=== PATIENT | female | born 1945 | race Caucasian/White ===

== ENCOUNTER → 2016-08-03 | Outpatient (CLI) | payer OTHER ==
[~2016-08-03] MED LIST: ALL180 PO; AMLO-110 PO; AMOX500C3 PO; AMOX875T PO; AZITTAB PO; BIOT50006 PO; CHOL1000 PO; CYAN500T PO; CZR50 PO; FERR1TAB61 PO; FEXO1TAB49 PO; GFNSR600 PO; GLC500 PO; GLIP10TA3 PO; INSDGIPEN SC; LEVO75TA PO; LOSA100T65 PO; MCR25 PO; MELA1TAB5 PO; METF-384 PO; POLY335019 PO; PRLSR20 PO; SIMV10TA2 PO
[2016-08-03 10:22] LABS: BASO % 0.3 %; BASO ABS # 0.02 K/uL (0-0.2); COMPLETE YES; EOS % 5.4 %; HEMATOCRIT 37.4 % (37-47); IG% 0.2 %; LYMPH % 36.8 %; LYMPH ABS # 2.31 K/uL (1.2-3.4); MEAN CELL VOLUME 93.5 fL (80-100); MEAN CORPUSCULAR HEMOGLOBIN 30.8 pg (25-34); MEAN CORPUSCULAR HGB CONC 32.9 g/dl (32-36); MEAN PLATELET VOLUME 10.6 fL (7.4-10.4); MONO % 10.2 %; NEUT % 47.1 %; PLATELET COUNT 303 K/uL (130-400); WHITE BLOOD COUNT 6.28 K/uL (4.8-10.8)
[2016-08-03 10:34] LABS: ALT/SGPT 22 U/L (12-78); BLOOD UREA NITROGEN 23 mg/dl (7-18); BUN/CREATININE RATIO 17.5 (10-20); CALCIUM 9.4 mg/dl (8.5-10.1); CARBON DIOXIDE 20 mmol/L (21-32); CHLORIDE 107 mmol/L (98-107); CHOLESTEROL 170 mg/dl (0-200); GLUCOSE 91 mg/dl (70-99); POTASSIUM 4.3 mmol/L (3.5-5.1); SODIUM 138 mmol/L (136-145)
[2016-08-03 10:44] LABS: ALKALINE PHOSPHATASE 66 U/L (45-117); AST/SGOT 12 U/L (15-37); CHOLESTEROL/HDL RATIO 4.4; HDL CHOLESTEROL 39 mg/dl; LDL CHOLESTEROL CALCULATED 86 mg/dl; TRIGLYCERIDES 227 mg/dl (0-150); VERY LOW DENSITY LIPOPROT CALC 45 mg/dl
[2016-08-03 11:33] LABS: ESTIMATED AVERAGE GLUCOSE 163 mg/dl; HA1C FLAG Normal (Normal)
--- NOTE | 2016-08-07 12:26 | CODING QUERY MEDICAL NECESSITY ---
SUPPORTING DIAGNOSIS NEEDED A supporting diagnosis is required for the test/procedure performed on this patient in order for us to be reimbursed by the patient's insurance. Please provide a supporting diagnosis for the following test/procedure listed below next to the test name along with your signature. *If there is no additional diagnosis for this patient that would support the following test/procedure please document that below next to the test/procedure. Test(s)/Procedure(s) that require a supporting diagnosis: * VITAMIN B-12 LEVEL DIAGNOSIS: * DOS: 08/03/16 Provider Signature: Date: Thank you Keely Ocampo Health Information Management Once completed, please kindly fax back to [phone] For questions please call [phone]
== END | disposition home or self-care (01) ==
LOC: C.LAB 08:05
PROVIDERS: ATTEND Internal Medicine Geriatric Medicine
DX: E78.5 Hyperlipidemia, unspecified (principal); I12.9 Hypertensive chronic kidney disease with stage 1 through stage 4 chronic kidney disease, or unspecified chronic kidney disease; M19.90 Unspecified osteoarthritis, unspecified site; E11.9 Type 2 diabetes mellitus without complications; E03.9 Hypothyroidism, unspecified; N18.3 Chronic kidney disease, stage 3 (moderate); E11.21 Type 2 diabetes mellitus with diabetic nephropathy; E53.8 Deficiency of other specified B group vitamins

== ENCOUNTER → 2016-10-30 | Outpatient (CLI) | payer OTHER ==
--- NOTE | 2016-10-30 16:38 | MAMMOGRAPHY REPORT ---
BILATERAL DIGITAL SCREENING MAMMOGRAM WITH CAD: 10/30/2016 CLINICAL HISTORY: Routine screening. Patient has no complaints. TECHNIQUE: Bilateral CC and MLO views were obtained. Current study was also evaluated with a Comput er Aided Detection (CAD) system. COMPARISON: Comparison is made to exams dated: 10/27/2015 mammogram, 10/01/2014 mammogram, 08/28/2013 m ammogram, 05/26/2012 mammogram, 05/08/2011 mammogram, and 04/28/2010 mammogram - [facility]. BREAST COMPOSITION: There are scattered areas of fibroglandular density in both breasts. FINDINGS: There are stable asymmetries in the right breast. Stable microcalcifications in the left breast. No new suspicious mass, architectural distortion or cluster of microcalcifications is seen. IMPRESSION: ACR BI-RADS CATEGORY 1: NEGATIVE There is no mammographic evidence of malignancy. A 1 year screening mammogram is recommended. The p atient will receive written notification of the results. Approximately 10% of breast cancers are not detected with mammography. A negative mammographic repor t should not delay biopsy if a clinically suggestive mass is present. Serina Combs M.D. ay/:10/30/2016 14:51:54 Chopper Feeder: Amina WALKER(Jeanne)(M), [facility] letter sent: Normal 1/2 BI-RADS Code: ACR BI-RADS Category 1: Negative
== END | disposition home or self-care (01) ==
LOC: C.MAMM 09:54
PROVIDERS: ATTEND Internal Medicine Geriatric Medicine
DX: Z12.31 Encounter for screening mammogram for malignant neoplasm of breast (principal)

== ENCOUNTER 2016-12-13 13:38 | Emergency (ER) | payer OTHER ==
[~2016-12-13] VITALS: Ht 147.3 cm; Wt 72.6 kg
[~2016-12-13 13:38] MED LIST changes: -AMLO-110 PO; -AMOX500C3 PO; -AMOX875T PO; -BIOT50006 PO; -CHOL1000 PO; -CYAN500T PO; -FERR1TAB61 PO; -FEXO1TAB49 PO; -GLIP10TA3 PO; -INSDGIPEN SC; -LEVO75TA PO; -LOSA100T65 PO; -MELA1TAB5 PO; -METF-384 PO; -POLY335019 PO
[2016-12-13 13:40] VITALS: TEMP 36.7; Ht 147.3 cm; Wt 72.6 kg
[2016-12-13] MEDS ORDERED: AMLO-110 PO (14:58)
[2016-12-13] MEDS ORDERED: LEVO75TA PO (14:58)
[2016-12-13] MEDS ORDERED: FERR1TAB61 PO (14:58)
[2016-12-13] MEDS ORDERED: METF-384 PO (14:58)
[2016-12-13] MEDS ORDERED: LOSA100T65 PO (14:58)
[2016-12-13] MEDS ORDERED: BIOT50006 PO (14:58)
[2016-12-13] MEDS ORDERED: CHOL1000 PO (14:58)
[2016-12-13] MEDS ORDERED: GLIP10TA3 PO (14:58)
[2016-12-13] MEDS ORDERED: FEXO1TAB49 PO (14:58)
[2016-12-13] MEDS ORDERED: CYAN500T PO (14:58)
[2016-12-13] MEDS ORDERED: MELA1TAB5 PO (14:58)
[2016-12-13] MEDS ORDERED: AMOX500C3 PO (14:58)
[2016-12-13] MEDS ORDERED: POLY335019 PO (14:58)
[2016-12-13] MEDS ORDERED: INSDGIPEN SC (14:58)
[2016-12-13] MEDS ORDERED: MoRPHine SULFATE 4 MG/ML 1 ML CARP IV STA (15:08)
[2016-12-13] MEDS ORDERED: ONDANSETRON INJ 2 MG/ML 2 ML VIAL IV STA (15:08)
[2016-12-13] MEDS ORDERED: SODIUM CHLORIDE 0.9% 1000ML 1,000 ML IV ONE (15:08)
[2016-12-13] MEDS ORDERED: SODIUM CHLORIDE 0.9% 1000ML 1,000 ML IV STA (15:08)
[2016-12-13] MEDS ORDERED: AMPICILLIN/SULBACTAM SOD INJ 3,000 MG in SODIUM CHLORIDE 0.9% 100ML 100 ML IV ONE (15:15)
--- NOTE | 2016-12-13 15:16 | EMERGENCY ROOM VISIT NOTE ---
History Report prepared by Aneudy: Marlo Ryder Under the Supervision of: Dr. Eric Fregoso M.D. First contact with patient: 14:59 Chief Complaint: DENTAL PAIN Stated Complaint: DENTAL PROCEDURE PAIN, SWELLING History of Present Illness The patient is a 71 year old female who presents to the Emergency Room with complaints of persistent left-sided dental pain that started 2 days ago. She says that she saw Dr. Weathers ([facility] [place] yesterday and was given Amoxicillin. She has taken 3 tablets so far. The patient adds that she started having swelling and redness in her neck last night. She does not have dental insurance, but she says that she saw a dentist in [place] ([facility]) this morning, and had 2 teeth pulled. The patient notes that the dentist says that there is another tooth that may be causing a problem, but it does not have a cavity. She states that both teeth that were pulled were on her left lower jaw. She was given a prescription of hydrocodone, but the patient's says that hydrocodone makes the patient's nauseous, so she did not take the hydrocodone. The dentist recommended that the patient talk to Dr. Weathers, and Dr. Stewart told the patient to come here to prevent the infection in her neck from spreading down her body. The patient adds that she has been nauseous, and has had a bit of trouble swallowing. She denies any chest pain or shortness of breath. The patient is diabetic, and takes medication for that. She also has a history of hypertension. Source of History: patient, spouse/significant other Onset: 2 days ago Position: teeth (left-side) Timing: other (persistent) Associated Symptoms: + nausea, No chest pain, No SOB Note: Associated symptoms: Swelling and redness in neck. Trouble swallowing. Review of Systems See HPI for pertinent positives & negatives. A total of 10 systems reviewed and were otherwise negative. Past Medical & Surgical Medical Problems: (1) Asthma W/O Status Asthm (2) Hyperlipidemia Nec/Nos (3) Hypertension Nos (4) Urin Tract Infection Nos Old medical records were reviewed. Nurse's notes were reviewed and I agree with. Family History Diabetes mellitus Hypertension Social History Smoking Status: Never Smoker Smokeless Tobacco Use: No Alcohol Use: none Marital Status: Housing Status: lives with family Occupation Status: retired Current/Historical Medications Scheduled Amlodipine (Norvasc), 2.5 MG PO DAILY Amoxicillin (Amoxil), 500 MG PO TID Amoxicillin & Pot Clavulanate (Augmentin 875-125 mg), 875 MG PO BID Biotin (Biotin), 1 TAB PO DAILY Cholecalciferol (Vitamin D3), 1 TAB PO DAILY Cyanocobalamin (Vitamin B-12), 500 MCG PO DAILY Ferrous Sulfate (Iron), 65 MG PO DAILY Fexofenadine Hcl (Shanell Allergy), 1 TAB PO DAILY Glipizide (Glucotrol), 10 MG PO BID Insulin Glargine (Lantus Solostar), 10 UNITS SC QAM Levothyroxine Sodium (Synthroid), 75 MCG PO DAILY Losartan Potassium (Cozaar), 100 MG PO DAILY Melatonin (Kp Melatonin), 1 TAB PO HS Metformin Hcl (Glucophage), 1,000 MG PO BID Omeprazole (Prilosec), 20 MG PO DAILY Polyethylene Glycol 3350 (Miralax), 17 GM PO BID Simvastatin (Zocor), 10 MG PO QPM Allergies Coded Allergies: Iodine (Verified Allergy, Unknown, IVP DYE=HIVES, 12/13/16) Sodium Chloride (Verified Allergy, Unknown, 12/13/16) Physical Exam Vital Signs Date Time Temp Pulse Resp B/P (MAP) Pulse Ox O2 Delivery O2 Flow Rate FiO2 12/13/16 17:24 100 18 134/93 93 12/13/16 15:32 104 18 153/95 94 Room Air 12/13/16 13:40 36.7 115 17 113/70 97 Room Air Physical Exam General: Well developed well nourished middle aged female who has 2 teeth in left lower jaw extracted, breathing comfortably on room air. Normal speech HEENT: Normal cephalic atraumatic. Floor of mouth is soft, no Alli's angina. Pupils are equal round and reactive to light. Extraocular movements are intact. Oropharynx is pink with moist mucous membranes. No swelling of the mouth lips or tongue. Neck: Mild swelling and redness under chin. Supple with a midline trachea. No meningeal signs or stiffness, no JVD or bruits. No Stridor. Chest: Clear to auscultation bilaterally. No wheezes or rhonchi. No increased work of breathing. Heart: regular rate and rhythm. Abdomen: Soft nontender, nondistended without rebound guarding or rigidity. Extremities: No cyanosis clubbing or edema. No calf tenderness or assymetry Spine/Back. Non tender to palpation. No CVA tenderness Skin: Good turgor without rashes. Neurologic exam: Cranial nerves two through 12 are intact. Motor and sensation are intact and symmetrical throughout. Medical Decision & Procedures ER Provider Diagnostic Interpretation: CT results as stated below per my review and radiologist interpretation: CT OF THE NECK WITHOUT CONTRAST CLINICAL HISTORY: Left lower jaw pain and swelling. Recent dental procedure. COMPARISON STUDY: Cervical spine CT June 22, 2010. TECHNIQUE: Axial images of the neck were obtained without IV contrast. FINDINGS: Visualized portions of the intracranial contents are unremarkable on this unenhanced exam. There is mild polypoid mucosal thickening of the ethmoid sinuses. Mastoid air cells are clear. There are several absent left mandibular teeth. There is moderate adjacent facial infiltration which extends into the upper to mid neck. There is associated thickening of the platysma muscle. There is no fluid collection to suggest an abscess on this unenhanced exam. Lung apices are clear. Airway is patent. No suspicious skeletal lesions are present. Epiglottis is normal. Unenhanced images of the parotid and submandibular glands are normal. IMPRESSION: Several absent left mandibular teeth suggestive of recent extraction. Adjacent infiltration and soft tissue thickening may reflect phlegmon with associated cellulitis of the face and neck. However, no abscess identified on this unenhanced exam. Electronically signed by: Leon Hunter M.D. 12/13/2016 3:59 PM Dictated Date/Time: 12/13/2016 3:52 PM Laboratory Results 12/13/16 15:27 Red Blood Count 4.45, Mean Corpuscular Volume 91.2, Mean Corpuscular Hemoglobin 29.7, Mean Corpuscular Hemoglobin Concent 32.5, Mean Platelet Volume 9.9, Neutrophils (%) (Auto) 77.3, Lymphocytes (%) (Auto) 12.0, Monocytes (%) (Auto) 10.0, Eosinophils (%) (Auto) 0.3, Basophils (%) (Auto) 0.1, Neutrophils # (Auto ) 11.72, Lymphocytes # (Auto) 1.83, Monocytes # (Auto) 1.52, Eosinophils # (Auto ) 0.05, Basophils # (Auto) 0.02 12/13/16 15:27 Test 12/13/16 15:27 White Blood Count 15.19 K/uL (4.8-10.8) Red Blood Count 4.45 M/uL (4.2-5.4) Hemoglobin 13.2 g/dL (12.0-16.0) Hematocrit 40.6 % (37-47) Mean Corpuscular Volume 91.2 fL (80-100) Mean Corpuscular Hemoglobin 29.7 pg (25-34) Mean Corpuscular Hemoglobin Concent 32.5 g/dl (32-36) Platelet Count 316 K/uL (130-400) Mean Platelet Volume 9.9 fL (7.4-10.4) Neutrophils (%) (Auto) 77.3 % Lymphocytes (%) (Auto) 12.0 % Monocytes (%) (Auto) 10.0 % Eosinophils (%) (Auto) 0.3 % Basophils (%) (Auto) 0.1 % Neutrophils # (Auto) 11.72 K/uL (1.4-6.5) Lymphocytes # (Auto) 1.83 K/uL (1.2-3.4) Monocytes # (Auto) 1.52 K/uL (0.11-0.59) Eosinophils # (Auto) 0.05 K/uL (0-0.5) Basophils # (Auto) 0.02 K/uL (0-0.2) RDW Standard Deviation 43.4 fL (36.4-46.3) RDW Coefficient of Variation 13.1 % (11.5-14.5) Immature Granulocyte % (Auto) 0.3 % Immature Granulocyte # (Auto) 0.05 K/uL (0.00-0.02) Anion Gap 10.0 mmol/L (3-11) Est Creatinine Clear Calc Drug Dose 27.7 ml/min Estimated GFR () 37.4 Estimated GFR (Non- 32.3 BUN/Creatinine Ratio 11.4 (10-20) Calcium Level 10.1 mg/dl (8.5-10.1) Laboratory studies as stated above per my review. Medications Administered Medications (Trade) Dose Ordered Sig/Celestina Route Start Time Stop Time Status Last Admin Dose Admin Sodium Chloride 1,000 ml @ 999 mls/hr Q1H1M STAT IV 12/13/16 15:08 12/13/16 16:08 DC 12/13/16 15:08 999 MLS/HR Sodium Chloride 1,000 ml @ 150 mls/hr Q6H40M ONCE IV 12/13/16 15:08 12/13/16 17:39 DC 12/13/16 15:08 150 MLS/HR Morphine Sulfate (MoRPHine SULFATE INJ) 4 mg NOW STAT IV 12/13/16 15:08 12/13/16 15:10 DC 12/13/16 15:34 4 MG Ondansetron HCl (Zofran Inj) 4 mg NOW STAT IV 12/13/16 15:08 12/13/16 15:10 DC 12/13/16 15:33 4 MG Ampicillin Sodium/ Sulbactam Sodium 3000 mg/Sodium Chloride 108 ml @ 200 mls/hr ONE ONCE IV 12/13/16 15:15 12/13/16 15:47 DC 12/13/16 15:34 200 MLS/HR Amoxicillin/ Clavulanate Potassium (Augmentin 875MG Home Pack) 1 homepack UD ONCE PO 12/13/16 17:15 12/13/16 17:16 DC 12/13/16 17:15 1 HOMEPACK ED Course 1500: Past medical records reviewed. The patient was evaluated in room B3B, and a complete history and physical examination were performed. 1508: Ordered Zofran Inj 4 mg IV, Morphine Sulfate Inj 4 mg IV, NSS 1000 ml @ 150 mls/hr IV, NSS 1000 ml @ 999 mls/hr IV. 1515: Ordered Ampicillin Sodium/Sulbactam Sodium 3000 mg/Sodium Chloride 108 ml @ 200 mls/hr IV. 1610: I reevaluated the patient. She is getting antibiotics and is stable. 1707: Upon reevaluation, the patient is resting comfortably. I discussed the results and treatment plan with her. She verbalized agreement of the treatment plan. The patient was discharged home. Medical Decision Differentials include, but are not limited to; dental abscess, dental caries, abscess, airway obstruction. Medication Reconciliation: I attest that I have personally reviewed the patient' s current medication list. Blood pressure Screening: Patient was found to have normal blood pressure on screening and does not require follow-up. This patient comes in as described above. She was placed in room A3. She was seen by her dentist and had 2 teeth pulled today. She is here for treatment and evaluation of some facial swelling and she has been on 3 dosages of Amoxicillin. She may have some mild swelling redness of her chin . The floor of mouth is soft on exam and do not reveal any symptoms to suggest Alli's angina. No evidence of airway compromise or stridor. I did order a CT soft tissue is contrast because she tells me she had allergic reaction to dye. IV access was established and she was hydrated with IV normal saline. She was additionally given morphine 4 mg and Zofran 4 mg IV for pain and nausea management. Blood work was obtained and she was reassessed. She feels better after the pain medication. CAT scan shows no abscess but there is some inflammation likely cellulitis. She feels good and would like to go home. I encouraged close follow-up tomorrow and I told her that she needs to get rechecked by either regular doctor her dentist. She will use Augmentin 875 mg twice a day instead of the amoxicillin this will have better broad-spectrum coverage. She can use her pain medication if needed and she should return if: increasing pain, shortness of breath, fever or chills worsening symptoms any new problems or concerns and again I stressed that somebody needs look at her tomorrow for recheck. Impression Primary Impression: Tooth ache Additional Impressions: Facial cellulitis Dental caries Scribe Attestation The scribe's documentation has been prepared under my direction and personally reviewed by me in its entirety. I confirm that the note above accurately reflects all work, treatment, procedures, and medical decision making performed by me. Departure Information Dispostion Home / Self-Care Prescriptions Amoxicillin & Pot Clavulanate (Augmentin 875-125 mg) 1 Tab Tab 875 MG PO BID for 10 Days, #20 TAB Prov: Eric Fregoso M.D. 12/13/16 Referrals Remi Weathers M.D. (PCP) Forms HOME CARE DOCUMENTATION FORM, IMPORTANT VISIT INFORMATION Patient Instructions My [facility] Additional Instructions Rest. Drink plenty of fluids. Use Augmentin 875 mg twice a day for 10 days. This replaces the amoxicillin Follow-up with your doctor or dentist tomorrow for recheck. Return to the ER in the meantime if: fever, increasing redness or warmth or swelling, Significant pain, difficulty breathing or swallowing, any new problems or concerns Problem Qualifiers
[2016-12-13 15:49] LABS: BASO % 0.1 %; BASO ABS # 0.02 K/uL (0-0.2); COMPLETE YES; EOS % 0.3 %; HEMATOCRIT 40.6 % (37-47); IG% 0.3 %; LYMPH ABS # 1.83 K/uL (1.2-3.4); MEAN CELL VOLUME 91.2 fL (80-100); MEAN CORPUSCULAR HEMOGLOBIN 29.7 pg (25-34); MEAN CORPUSCULAR HGB CONC 32.5 g/dl (32-36); MEAN PLATELET VOLUME 9.9 fL (7.4-10.4); NEUT % 77.3 %; PLATELET COUNT 316 K/uL (130-400); RED BLOOD COUNT 4.45 M/uL (4.2-5.4); WHITE BLOOD COUNT 15.19 K/uL (4.8-10.8)
--- NOTE | 2016-12-13 16:00 | DIAGNOSTIC IMAGING REPORT ---
ADDENDUM Addendum: This study was reviewed with Dr. Fregoso. Note is made of a periapical lucency of a left mandibular molar. This molar is adjacent to a recently extracted tooth. Multiple dental amalgams are present. Electronically signed by: Leon Hunter M.D. 12/13/2016 4:32 PM Dictated Date/Time: 12/13/2016 4:[address] OF THE NECK WITHOUT CONTRAST CLINICAL HISTORY: Left lower jaw pain and swelling. Recent dental procedure. COMPARISON STUDY: Cervical spine CT June 22, 2010. TECHNIQUE: Axial images of the neck were obtained without IV contrast. FINDINGS: Visualized portions of the intracranial contents are unremarkable on this unenhanced exam. There is mild polypoid mucosal thickening of the ethmoid sinuses. Mastoid air cells are clear. There are several absent left mandibular teeth. There is moderate adjacent facial infiltration which extends into the upper to mid neck. There is associated thickening of the platysma muscle. There is no fluid collection to suggest an abscess on this unenhanced exam. Lung apices are clear. Airway is patent. No suspicious skeletal lesions are present. Epiglottis is normal. Unenhanced images of the parotid and submandibular glands are normal. IMPRESSION: Several absent left mandibular teeth suggestive of recent extraction. Adjacent infiltration and soft tissue thickening may reflect phlegmon with associated cellulitis of the face and neck. However, no abscess identified on this unenhanced exam. Electronically signed by: Leon Hunter M.D. 12/13/2016 3:59 PM Dictated Date/Time: 12/13/2016 3:52 PM
[2016-12-13 16:09] LABS: BUN/CREATININE RATIO 11.4 (10-20); CALCIUM 10.1 mg/dl (8.5-10.1); CREATININE 1.6 mg/dl (0.60-1.20); POTASSIUM 4.1 mmol/L (3.5-5.1)
[2016-12-13] MEDS ORDERED: AMOX875T PO (17:06)
[2016-12-13] MEDS ORDERED: AMOXICIL/CLAVU 875MG HOME PACK PO ONE (17:15)
[2016-12-13 17:24] VITALS: BP 134/93; PULSE 100; O2SAT 93
== END 2016-12-13 17:26 | disposition home or self-care (01) ==
LOC: C.EDB 13:39
DX: K02.9 Dental caries, unspecified (principal); L03.211 Cellulitis of face; E78.5 Hyperlipidemia, unspecified; I10 Essential (primary) hypertension; J45.909 Unspecified asthma, uncomplicated; Z87.440 Personal history of urinary (tract) infections; Z79.84 Long term (current) use of oral hypoglycemic drugs; Z79.4 Long term (current) use of insulin; Z79.899 Other long term (current) drug therapy; Z82.49 Family history of ischemic heart disease and other diseases of the circulatory system; Z83.3 Family history of diabetes mellitus; Z91.09 Other allergy status, other than to drugs and biological substances

== ENCOUNTER → 2016-12-19 | Outpatient (CLI) | payer OTHER ==
[~2016-12-19] MED LIST changes: -ALL180 PO; +AMLO-110 PO; +AMOX500C3 PO; +AMOX875T PO; -AZITTAB PO; +BIOT50006 PO; +CHOL1000 PO; +CYAN500T PO; -CZR50 PO; +FERR1TAB61 PO; +FEXO1TAB49 PO; -GFNSR600 PO; -GLC500 PO; +GLIP10TA3 PO; +INSDGIPEN SC; +LEVO75TA PO; +LOSA100T65 PO; -MCR25 PO; +MELA1TAB5 PO; +METF-384 PO; +POLY335019 PO
[2016-12-19 13:53] LABS: BLOOD UREA NITROGEN 15 mg/dl (7-18); BUN/CREATININE RATIO 12.2 (10-20); CALCIUM 9.8 mg/dl (8.5-10.1); CARBON DIOXIDE 20 mmol/L (21-32); CHLORIDE 112 mmol/L (98-107); GLUCOSE 119 mg/dl (70-99); POTASSIUM 4.3 mmol/L (3.5-5.1); SODIUM 141 mmol/L (136-145)
== END | disposition home or self-care (01) ==
LOC: C.LAB 12:23
PROVIDERS: ATTEND Internal Medicine Geriatric Medicine
DX: Z11.59 Encounter for screening for other viral diseases (principal); I10 Essential (primary) hypertension

== ENCOUNTER → 2017-09-19 | Outpatient (CLI) | payer OTHER ==
[~2017-09-19] MED LIST changes: -AMOX875T PO
--- NOTE | 2017-09-19 15:57 | DIAGNOSTIC IMAGING REPORT ---
L WRIST MIN 3 VIEWS ROUTINE HISTORY: 71 years-old Female M25.532 Left wrist painleft acute left-sided wrist pain COMPARISON: None available TECHNIQUE: 4 views of the left wrist FINDINGS: Bones are mildly demineralized. Mild radiocarpal, triscaphe and first carpometacarpal osteoarthritis. Chondrocalcinosis within the region of the TFCC. No definite acute fracture or dislocation identified. No opaque foreign body. Mild soft tissue prominence about the wrist. IMPRESSION: 1. Mild soft tissue prominence without acute fracture or dislocation. 2. Degenerative changes as above with chondrocalcinosis. The above report was generated using voice recognition software. It may contain grammatical, syntax or spelling errors. Electronically signed by: Ritchie Cordova M.D. 09/19/2017 3:56 PM Dictated Date/Time: 09/19/2017 3:54 PM
== END | disposition home or self-care (01) ==
LOC: C.RADBC 15:30
PROVIDERS: ATTEND Internal Medicine Geriatric Medicine
DX: M25.532 Pain in left wrist (principal); M11.232 Other chondrocalcinosis, left wrist

== ENCOUNTER → 2017-09-25 | Outpatient (CLI) | payer OTHER ==
[2017-09-25 09:46] LABS: HEMOGLOBIN A1C 7.8 % (4.5-5.6)
[2017-09-25 10:07] LABS: BLOOD UREA NITROGEN 18 mg/dl (7-18); CALCIUM 9.7 mg/dl (8.5-10.1); CARBON DIOXIDE 22 mmol/L (21-32); CREATININE 1.39 mg/dl (0.60-1.20); GLUCOSE 94 mg/dl (70-99); POTASSIUM 3.7 mmol/L (3.5-5.1); SODIUM 139 mmol/L (136-145)
== END | disposition home or self-care (01) ==
LOC: C.LAB 07:19
PROVIDERS: ATTEND Internal Medicine Geriatric Medicine
DX: I12.9 Hypertensive chronic kidney disease with stage 1 through stage 4 chronic kidney disease, or unspecified chronic kidney disease (principal); E53.8 Deficiency of other specified B group vitamins; N18.3 Chronic kidney disease, stage 3 (moderate); E55.9 Vitamin D deficiency, unspecified